=== PATIENT | male | born 1935 | race Caucasian/White ===

== ENCOUNTER 2016-08-10 11:28 | Inpatient (IN) | payer OTHER ==
[~2016-08-10] VITALS: Ht 172.7 cm; Wt 98.4 kg
[2016-08-10 12:41] VITALS: BP 154/73; PULSE 70; TEMP 36.8; O2SAT 98; Ht 172.7 cm; Wt 98.4 kg
[2016-08-10 13:31] LABS: HEMATOCRIT 37.7 % (42-52); MEAN CELL VOLUME 75.2 fL (80-100); MEAN CORPUSCULAR HEMOGLOBIN 24.2 pg (25-34); MEAN CORPUSCULAR HGB CONC 32.1 g/dl (32-36); MEAN PLATELET VOLUME 11.2 fL (7.4-10.4); PLATELET COUNT 191 K/uL (130-400); RED BLOOD COUNT 5.01 M/uL (4.7-6.1); WHITE BLOOD COUNT 7.33 K/uL (4.8-10.8)
[2016-08-10 13:58] LABS: ALT/SGPT 30 U/L (12-78); BLOOD UREA NITROGEN 16 mg/dl (7-18); BUN/CREATININE RATIO 16.8 (10-20); CARBON DIOXIDE 27 mmol/L (21-32); CHLORIDE 105 mmol/L (98-107); CREATININE 0.94 mg/dl (0.60-1.40); GLUCOSE 107 mg/dl (70-99); POTASSIUM 3.6 mmol/L (3.5-5.1); SODIUM 142 mmol/L (136-145)
[2016-08-10 14:03] LABS: CALCIUM 8.9 mg/dl (8.5-10.1)
[2016-08-10 14:05] LABS: ALB/GLOB RATIO 1.1 (0.9-2); ALKALINE PHOSPHATASE 37 U/L (45-117); AST/SGOT 14 U/L (15-37)
[2016-08-10] MEDS ORDERED: LOSA1TAB PO (14:05)
[2016-08-10] MEDS ORDERED: TAMS0.4C38 PO (14:14)
[2016-08-10] MEDS ORDERED: POLY335019 PO (14:14)
[2016-08-10] MEDS ORDERED: HYDR12.56 PO (14:14)
[2016-08-10] MEDS ORDERED: CYCL10TA6 PO (14:14)
[2016-08-10] MEDS ORDERED: FINA5TAB4 PO (14:14)
[2016-08-10] MEDS ORDERED: ASPEC81 PO (14:14)
[2016-08-10] MEDS ORDERED: MULT-506 PO (14:14)
[2016-08-10] MEDS ORDERED: SYMIN160 INH (14:14)
[2016-08-10] MEDS ORDERED: OMEP40CA41 PO (14:14)
[2016-08-10 14:19] LABS: PROTHROMBIN TIME (PATIENT) 10.9 SECONDS (9.0-12.0)
[2016-08-10] MEDS ORDERED: LOSARTAN POTASSIUM 25 MG TAB PO ONE (15:00)
--- NOTE | 2016-08-10 15:32 | Pre-Operative Consultation ---
History General Date of Service: August 10, 2016. HPI HPI: 81 y/o male seen in [facility] ER early this morning for lower abdominal, epigastric pain that began last night around 10:00. Had hamburger around 3:00. No nausea or vomiting. No similar symptoms in the past. Remote history of umbilical hernia repair. Bowels have been regular, sometimes takes a laxative. CT at [place] shows 7mm gallstones, no comment on inflammatory findings however, and bilateral fat containing inguinal hernias. He feels bloated across lower abdomen, no groin bulging or pain. He was eating regular lunch when I saw him. Medical & Surgical History Past Medical History: congestive heart failure, coronary artery disease Past Surgical History: colonoscopy, EGD, hernia repair (umbilical), total knee replacement (bilat), other (cysto) Social History Hx Tobacco Use In Past Year?: No Smoking Status: Former Smoker Allergies Allergies: Coded Allergies: No Known Allergies (Verified , 05/11/02) Medications Current Inpatient Medications Current Inpatient Medications Medications (Trade) Dose Ordered Sig/Shilpa Route Start Time Stop Time Status Last Admin Dose Admin Enoxaparin Sodium (Lovenox Inj) 40 mg Q24H SQ 08/10/16 21:00 09/09/16 20:59 Aspirin (Ecotrin Tab) 81 mg DAILY PO 08/11/16 09:00 09/10/16 08:59 Budesonide/ Formoterol Fumarate (Symbicort 160/ 4.5 Inh) 2 puffs BID INH 08/10/16 21:00 09/09/16 20:59 Finasteride (Proscar Tab) 5 mg DAILY PO 08/11/16 09:00 09/10/16 08:59 Losartan Potassium (coZAAR TAB) 25 mg DAILY PO 08/11/16 09:00 09/10/16 08:59 Multivitamins (Multivitamin Tab) 1 tab DAILY PO 08/11/16 09:00 09/10/16 08:59 Tamsulosin HCl (Flomax Cap) 0.4 mg DAILY PO 08/11/16 09:00 09/10/16 08:59 Pantoprazole Sodium (Protonix Tab) 40 mg QAM PO 08/11/16 09:00 09/10/16 08:59 Polyethylene (Miralax Powder Packet) 17 gm DAILY PRN PO 08/10/16 14:30 09/09/16 14:29 Losartan Potassium (coZAAR TAB) 25 mg NOW ONCE PO 08/10/16 15:00 08/10/16 15:01 Review of Systems Review of Systems Constitutional: denies chills, denies fever Gastrointestinal: abdominal pain, constipation, denies diarrhea, denies nausea , denies vomiting Physical Exam Physical Exam General Appearance: + WD/WN, No distress Ears, Nose, Throat: + normal ENT inspection Abdomen: + distension (minimal), No guarding, No hernia (no recurrent umbilical , no inguinal appreciated), No organomegaly, No tenderness Diagnostics Labs Labs Results Past 24 Hours Test 08/10/16 12:48 08/10/16 13:10 Range/Units Creatine Kinase MB Ratio 0-3.0 White Blood Count 7.33 4.8-10.8 K/uL Red Blood Count 5.01 4.7-6.1 M/uL Hemoglobin 12.1 14.0-18.0 g/dL Hematocrit 37.7 42-52 % Mean Corpuscular Volume 75.2 80-100 fL Mean Corpuscular Hemoglobin 24.2 25-34 pg Mean Corpuscular Hemoglobin Concent 32.1 32-36 g/dl RDW Standard Deviation 43.3 36.4-46.3 fL RDW Coefficient of Variation 15.8 11.5-14.5 % Platelet Count 191 130-400 K/uL Mean Platelet Volume 11.2 7.4-10.4 fL Prothrombin Time 10.9 9.0-12.0 SECONDS Prothromb Time International Ratio 1.0 0.9-1.1 Sodium Level 142 136-145 mmol/L Potassium Level 3.6 3.5-5.1 mmol/L Chloride Level 105 98-107 mmol/L Carbon Dioxide Level 27 21-32 mmol/L Anion Gap 10.0 3-11 mmol/L Blood Urea Nitrogen 16 7-18 mg/dl Creatinine 0.94 0.60-1.40 mg/dl Est Creatinine Clear Calc Drug Dose 67.3 ml/min Estimated GFR () 86.6 Estimated GFR (Non- 74.7 BUN/Creatinine Ratio 16.8 10-20 Random Glucose 107 70-99 mg/dl Calcium Level 8.9 8.5-10.1 mg/dl Total Bilirubin 0.8 0.2-1 mg/dl Aspartate Amino Transf (AST/SGOT) 14 15-37 U/L Alanine Aminotransferase (ALT/SGPT) 30 12-78 U/L Alkaline Phosphatase 37 45-117 U/L Creatine Kinase MB 1.5 0.5-3.6 ng/ml Troponin I 0.023 0-0.045 ng/ml Pro-B-Type Natriuretic Peptide 1673 0-1800 pg/ml Total Protein 7.4 6.4-8.2 gm/dl Albumin 3.8 3.4-5.0 gm/dl Globulin 3.6 2.5-4.0 gm/dl Albumin/Globulin Ratio 1.1 0.9-2 Lipase 55 73-393 U/L Impression Assessment and Plan Assessment and Plan abdominal pain, ? biliary colic cholelithiasis on CT, no studies suggest acute cholecystitis but will check U /S and repeat AM labs bilateral fat containing inguinal hernias, asymptomatic
[2016-08-10] MEDS: POLYETHYLENE (MIRALAX) 17 GM PACK PO PRN (15:35)
[2016-08-10 15:42] VITALS: BP 149/73; PULSE 73; TEMP 37; O2SAT 93
--- NOTE | 2016-08-10 17:53 | History and Physical ---
History & Physical Date & Time of Service: August 10, 2016 at 17:34 Chief Complaint: Abdominal Pain Primary Care Physician: Maricano Mcintosh M.D. History of Present Illness 81 year old male who presented to [place] ED with abdominal pain. Patient reports the pain began around midnight last night. He reports it was located in the lower middle abdomen and radiated out to the sides. He says it was constant and severe. He describes it as a cramping. He reports mild associated nausea with a couple episodes of a small vomiting. He denies diarrhea, fever, and chills. He notes yesterday while cleaning up some garbage he has exertional shortness of breath which is something new for him. He denies chest pain. He reports with rest his shortness of breath improved. He has some swelling to the BLLE today. He notes his legs swell at times and this is no worse than normal. Patient is currently without complaint. Reports the abdominal pain has completely resolved. He denies lightheadedness, dizziness, diaphoresis, or syncope. No urinary symptoms. At [place] [facility] ED, patient had a CT abd/pelvis that showed multiple small gallstones, nodular prostate gland, BL pleural effusions, hepatic hemangiomas, and BL inguinal hernias. CXR showed mild CHF. Patient was given Lasix 80mg IV. At the time of my exam, patient is sitting up in the chair, no acute distress. Past Medical/Surgical History Medical Problems: (1) Asthma, mild persistent Status: Chronic (2) GERD (gastroesophageal reflux disease) Status: Chronic (3) HTN (hypertension) Status: Chronic (4) Osteoarthritis Status: Chronic Surgical Problems: (1) H/O umbilical hernia repair Status: Chronic (2) History of tonsillectomy Status: Chronic (3) History of total knee replacement Status: Chronic Family History non contributory due to patient's advanced age Social History Smoking Status: Never Smoker Alcohol Use: occasionally Marital Status: Housing status: lives with family Immunizations History of Influenza Vaccine: Yes Influenza Vaccine Date: Dec 24, 2015 History of Tetanus Vaccine?: Yes Tetanus Immunization Date: Jun 09, 2013 History of Pneumococcal: Yes Pneumococcal Date: Mar 21, 2014 Multi-Drug Resistant Organisms History of MDRO: No Allergies Coded Allergies: No Known Allergies (Verified , 05/11/02) Home Medications Scheduled Aspirin (Aspirin EC Low Dose), 81 MG PO DAILY Budesonide/Formoterol Fumarate (Symbicort 160/4.5 Inhaler), 2 PUFFS INH BID Finasteride (Proscar), 1 TAB PO DAILY Hydrochlorothiazide (Hctz), 1 CAP PO DAILY Losartan Potassium (Cozaar), 1 TAB PO DAILY Multivitamin (Multivitamin), 1 TAB PO DAILY Omeprazole (Prilosec), 40 MG PO DAILY Tamsulosin Hcl (Flomax), 0.4 MG PO DAILY Scheduled PRN Cyclobenzaprine Hcl (Flexeril), 1 TAB PO BID PRN for Muscle Spasms Polyethylene Glycol 3350 (Miralax), 17 GM PO DAILY PRN for Constipation Review of Systems ROS per HPI, all other systems reviewed and negative Physical Exam Vital Signs Date Time Temp Pulse Resp B/P Pulse Ox O2 Delivery O2 Flow Rate FiO2 08/10/16 16:00 Room Air 08/10/16 15:42 37.0 73 16 149/73 93 Room Air 08/10/16 12:41 36.8 70 18 154/73 98 Room Air General Appearance: no apparent distress Head: normocephalic Eyes: normal inspection ENT: hearing grossly normal Neck: supple, no JVD Respiratory/Chest: lungs clear, normal breath sounds, no respiratory distress Cardiovascular: regular rate, rhythm, normal peripheral pulses, + pertinent finding (trace edema BLLE) Abdomen/GI: normal bowel sounds, non tender, soft Extremities/Musculoskelatal: normal inspection, no calf tenderness Neurologic/Psych: no motor/sensory deficits, alert, normal mood/affect, oriented x 3 Skin: normal color, warm/dry Diagnostics Laboratory Results Results Past 24 Hours Test 08/10/16 12:48 08/10/16 13:10 Range/Units Creatine Kinase MB Ratio 0-3.0 White Blood Count 7.33 4.8-10.8 K/uL Red Blood Count 5.01 4.7-6.1 M/uL Hemoglobin 12.1 14.0-18.0 g/dL Hematocrit 37.7 42-52 % Mean Corpuscular Volume 75.2 80-100 fL Mean Corpuscular Hemoglobin 24.2 25-34 pg Mean Corpuscular Hemoglobin Concent 32.1 32-36 g/dl RDW Standard Deviation 43.3 36.4-46.3 fL RDW Coefficient of Variation 15.8 11.5-14.5 % Platelet Count 191 130-400 K/uL Mean Platelet Volume 11.2 7.4-10.4 fL Prothrombin Time 10.9 9.0-12.0 SECONDS Prothromb Time International Ratio 1.0 0.9-1.1 Sodium Level 142 136-145 mmol/L Potassium Level 3.6 3.5-5.1 mmol/L Chloride Level 105 98-107 mmol/L Carbon Dioxide Level 27 21-32 mmol/L Anion Gap 10.0 3-11 mmol/L Blood Urea Nitrogen 16 7-18 mg/dl Creatinine 0.94 0.60-1.40 mg/dl Est Creatinine Clear Calc Drug Dose 67.3 ml/min Estimated GFR () 86.6 Estimated GFR (Non- 74.7 BUN/Creatinine Ratio 16.8 10-20 Random Glucose 107 70-99 mg/dl Calcium Level 8.9 8.5-10.1 mg/dl Total Bilirubin 0.8 0.2-1 mg/dl Aspartate Amino Transf (AST/SGOT) 14 15-37 U/L Alanine Aminotransferase (ALT/SGPT) 30 12-78 U/L Alkaline Phosphatase 37 45-117 U/L Creatine Kinase MB 1.5 0.5-3.6 ng/ml Troponin I 0.023 0-0.045 ng/ml Pro-B-Type Natriuretic Peptide 1673 0-1800 pg/ml Total Protein 7.4 6.4-8.2 gm/dl Albumin 3.8 3.4-5.0 gm/dl Globulin 3.6 2.5-4.0 gm/dl Albumin/Globulin Ratio 1.1 0.9-2 Lipase 55 73-393 U/L Impression Assessment and Plan NEW ONSET CHF, MILD - admit to tele - patient presenting from [place] [facility] ED with reports of abdominal pain and exertional shortness of breath yesterday; on imaging found to have mild CHF - s/p Lasix 80mg IV at [facility], currently saturating well - stress echo 2012 - negative for ischemia, EF 60-64%, mild aortic valve regurgitation - EKG does not show any acute ST changes, initial troponin negative - continue to cycle cardiac enzymes, check resting echo - will hold on further diuresis at this point as reassess need in AM - case discussed with Dr. Rutherford ABDOMINAL PAIN - CT abd/pelvis from [facility] without acute findings - multiple small gallstones, nodular prostate gland, renal cortical thickening, hepatic hemangioma, BL inguinal hernias - patient currently pain free, afebrile, no leukocytosis - ? if pain is from inguinal hernias; doubt from gallstones since pain is located in the lower abdomen - general surgery consult, input appreciated HEPATIC HEMANGIOMA, NODULAR PROSTATE - outpatient follow up HTN - BP mildly elevated however did not take meds today - continue Losartan, will hold HCTZ due to Lasix given today ASTHMA - no signs of acute exacerbation, continue home inhalers BPH - continue home meds DVT PROPHYLAXIS - SQ Lovenox DISPO - In my clinical judgment this beneficiary meets acute admission criteria, established by [facility], that includes being hospitalized through two midnights. I have seen and evaluated the patient and discussed the case with the provider above. I agree with the assessment and plan as stated. He is clinically improved with clear lungs to auscultation and is feeling well. He denies any abdominal pain at this time and is free of fevers, chills, elevated WBC count so doubt cholecysitis. Pain was improved at ER with PPI and antiemetics only. Likely dc in am. DO Que Level of Care Telemetry Advanced Directives Existing Living Will: No Existing Power of Broadcast Producer: Yes Resuscitation Status FULL RESUSCITATION VTE Prophylaxis VTE Risk Assessment Done? Y/N: Yes Risk Level: Moderate Given or contraindicated: Enoxaparin (Lovenox)SQ
--- NOTE | 2016-08-10 18:48 | CARDIOLOGY CONSULTATION ---
DATE OF CONSULTATION: 08/10/2016 CONSULTATION REQUESTED BY: KASH García. REASON FOR CONSULTATION: Questionable heart failure. HISTORY OF PRESENT ILLNESS: Mr. Peck is a very pleasant 81-year-old gentleman who presented to [facility] Emergency Department this a.m. with a complaint of mid epigastric pain. He was then transferred to [facility] for further evaluation and care. The patient states he has been in his normal state of health lately, except for the last few days feeling his abdomen being a little bloated and noticing that he would bend over to pick something up off the ground that would make him a little short of breath. Other than that, he denied any chest pain, shortness of breath with exertion, palpitations, lightheadedness, dizziness, or syncope. He has not changed his diet at all recently nor has he had any other significant changes then this a.m., he woke up with significant abdominal pain, it is in the midepigastrium and stayed there, did not radiate to his chest. He went to the Emergency Department, a CAT scan of his chest and abdomen showed right greater than left pleural effusions and he was diagnosed with heart failure. He was reportedly given 80 mg of IV Lasix. He did urinate significantly and currently has no shortness of breath at rest. He states that his abdominal pain is relatively well controlled. PAST SURGICAL HISTORY: 1. Umbilical hernia repair. 2. Tonsillectomy. 3. Total knee replacement. MEDICAL ILLNESSES: 1. Asthma. 2. GERD. 3. Hypertension. 4. Osteoarthritis. FAMILY HISTORY: Noncontributory. SOCIAL HISTORY: Denies any alcohol, tobacco or recreational drug use. He is and lives at home with his . REVIEW OF SYSTEMS: As per HPI, all other review of systems reviewed and negative at this time. ALLERGIES: No known drug allergies. MEDICATIONS AN OUTPATIENT: 1. Aspirin 81 mg daily. 2. Hydrochlorothiazide 25 mg daily. 3. Cozaar 100 mg daily. 4. Prilosec daily. 5. Flomax daily. 6. Proscar daily. 7. Symbicort b.i.d. PHYSICAL EXAMINATION: VITAL SIGNS: Temperature 36.8, pulse 70, respiratory rate 12, blood pressure 154/73. GENERAL: Awake, alert, oriented x3 in no acute distress. HEENT: Normocephalic, atraumatic. Pupils equal, round, and reactive to light and accommodation. Extraocular muscles intact. Anicteric sclerae. Moist mucous membranes. NECK: No JVD, no bruit. CARDIOVASCULAR: Regular. Positive S4. Normal S1 and S2. No S3. No murmurs or rubs. PULMONARY: Clear to auscultation bilaterally with diminished air movement in the bilateral bases. No rales, rhonchi, or wheezing. ABDOMEN: Bowel sounds x4, soft, mid epigastric tenderness. No rebound or guarding. No organomegaly. No bruit. EXTREMITIES: Trace left lower extremity edema. No clubbing or cyanosis. +2 pedal pulses bilaterally. SKIN: Warm and dry. TEST RESULTS: Preliminary review of echocardiogram at the bedside showed normal LV systolic function without regional wall motion abnormality, no significant valvular pathology, possibly mild aortic insufficiency. CT of the chest from [place] [facility] was read as moderate right-sided pleural effusion and small left-sided pleural effusion. IMPRESSION: 1. Abdominal pain. 2. Pleural effusions. 3. Normal ventricular systolic function. RECOMMENDATIONS: It was my pleasure to see Mr. Peck in consultation today. Given the echocardiogram finding of only diastolic dysfunction with normal left ventricular systolic function and the fact the patient has urinated and has no further shortness of breath, no further cardiac testing or intervention is necessary at this time. There may be a diastolic dysfunction component to his pleural effusions, but given his lack of symptoms, I believe p.r.n., Lasix will be the most appropriate treatment, otherwise his abdominal pain is to be worked up further.
[2016-08-10 19:20] VITALS: BP 147/73; PULSE 67; TEMP 37; O2SAT 95
--- NOTE | 2016-08-10 19:43 | DIAGNOSTIC IMAGING REPORT ---
ULTRASOUND RIGHT UPPER QUADRANT ABDOMEN CLINICAL HISTORY: Epigastric abdominal pain. COMPARISON STUDY: Abdominal CT from [facility] performed the same day 08/10/2016. TECHNIQUE: Real-time, grayscale, and color flow sonography of the right upper quadrant of the abdomen was performed. Images are reviewed in the transverse and longitudinal planes. FINDINGS: Liver: The liver is normal in size and echotexture. There is no intrahepatic biliary ductal dilatation. A 2.6 cm well-circumscribed echogenic lesion in the liver is consistent with a hemangioma when correlated with today's abdominal CT scan. The main portal vein is patent. Gallbladder: The gallbladder is distended and filled with echogenic sludge and shadowing stones. The gallbladder wall appears thickened measuring up to 5 mm. No pericholecystic fluid is seen. A sonographic Gonzáles's sign is reportedly absent. The common bile duct measures up to 0.4 cm in diameter. Pancreas: Visualized portions of the pancreatic head and body are normal in appearance. Right kidney: Survey images of the right kidney demonstrate mild cortical atrophy. There is no hydronephrosis. A 2.9 cm right renal cyst is identified. Ascites: None. IMPRESSION: 1. The gallbladder is distended and filled with shadowing stones and sludge. The gallbladder wall appears thickened. A sonographic Gonzáles sign is reportedly absent and there is no pericholecystic fluid. Findings are equivocal for acute versus chronic cholecystitis which is not excluded. Clinical correlation will be essential. Consider correlation with nuclear hepatobiliary scan to assess for patency of the cystic duct. 2. There is no intra or extrahepatic biliary ductal dilatation. 3. A hepatic hemangioma is incidentally noted. Electronically signed by: Ronal Velasco M.D. 08/10/2016 7:41 PM Dictated Date/Time: 08/10/2016 7:37 PM
[2016-08-10] MEDS ORDERED: ENOXAPARIN 40 MG/0.4 ML SYR SQ SCH (21:00)
[2016-08-10] MEDS: BUDESONIDE/FORMOTEROL FUMARATE 160/4.5 60 PUFFS/INHALER INH SCH (21:05)
[2016-08-10 23:37] VITALS: BP 143/69; PULSE 86; TEMP 37.3; O2SAT 95
[2016-08-11] VITALS (11 sets, daily range): BP systolic 116–149; BP diastolic 60–77; PULSE 74–88; TEMP 36.7–37.2; O2SAT 90–99
[2016-08-11 05:45] LABS: BASO % 0.1 %; BASO ABS # 0.01 K/uL (0-0.2); COMPLETE YES; HEMATOCRIT 32.7 % (42-52); IG% 0.1 %; LYMPH % 16.6 %; LYMPH ABS # 1.15 K/uL (1.2-3.4); MEAN CELL VOLUME 75.2 fL (80-100); MEAN CORPUSCULAR HEMOGLOBIN 24.6 pg (25-34); MEAN CORPUSCULAR HGB CONC 32.7 g/dl (32-36); MEAN PLATELET VOLUME 10.2 fL (7.4-10.4); MONO % 14.7 %; NEUT % 67.5 %; PLATELET COUNT 154 K/uL (130-400); RED BLOOD COUNT 4.35 M/uL (4.7-6.1); WHITE BLOOD COUNT 6.93 K/uL (4.8-10.8)
--- NOTE | 2016-08-11 06:01 | Surgery Progress Note ---
Surgery Progress Note Date of Service August 11, 2016. Subjective + flatus, No bowel movement, No nausea, No vomiting pain has subsided u/s- gallbladder- distended, thick wall, sludge filled Objective Vital Signs: Date Time Temp Pulse Resp B/P Pulse Ox O2 Delivery O2 Flow Rate FiO2 08/11/16 04:24 37.1 82 18 145/71 93 Room Air 08/11/16 04:00 Room Air 08/10/16 23:59 Room Air 08/10/16 23:37 37.3 86 16 143/69 95 Room Air 08/10/16 20:00 Room Air 08/10/16 19:20 37.0 67 18 147/73 95 Room Air 08/10/16 16:00 Room Air 08/10/16 15:42 37.0 73 16 149/73 93 Room Air 08/10/16 12:41 36.8 70 18 154/73 98 Room Air General Appearance: no apparent distress Respiratory/Chest: no respiratory distress Abdomen: + distended (less than yesterday) Laboratory Results: Results Past 24 Hours Test 08/10/16 12:48 08/10/16 13:10 08/10/16 18:59 08/11/16 00:45 Range/Units Creatine Kinase MB Ratio 0-3.0 White Blood Count 7.33 4.8-10.8 K/uL Red Blood Count 5.01 4.7-6.1 M/uL Hemoglobin 12.1 14.0-18.0 g/dL Hematocrit 37.7 42-52 % Mean Corpuscular Volume 75.2 80-100 fL Mean Corpuscular Hemoglobin 24.2 25-34 pg Mean Corpuscular Hemoglobin Concent 32.1 32-36 g/dl RDW Standard Deviation 43.3 36.4-46.3 fL RDW Coefficient of Variation 15.8 11.5-14.5 % Platelet Count 191 130-400 K/uL Mean Platelet Volume 11.2 7.4-10.4 fL Prothrombin Time 10.9 9.0-12.0 SECONDS Prothromb Time International Ratio 1.0 0.9-1.1 Sodium Level 142 136-145 mmol/L Potassium Level 3.6 3.5-5.1 mmol/L Chloride Level 105 98-107 mmol/L Carbon Dioxide Level 27 21-32 mmol/L Anion Gap 10.0 3-11 mmol/L Blood Urea Nitrogen 16 7-18 mg/dl Creatinine 0.94 0.60-1.40 mg/dl Est Creatinine Clear Calc Drug Dose 67.3 ml/min Estimated GFR () 86.6 Estimated GFR (Non- 74.7 BUN/Creatinine Ratio 16.8 10-20 Random Glucose 107 70-99 mg/dl Calcium Level 8.9 8.5-10.1 mg/dl Total Bilirubin 0.8 0.2-1 mg/dl Aspartate Amino Transf (AST/SGOT) 14 15-37 U/L Alanine Aminotransferase (ALT/SGPT) 30 12-78 U/L Alkaline Phosphatase 37 45-117 U/L Creatine Kinase MB 1.5 1.5 1.1 0.5-3.6 ng/ml Troponin I 0.023 0.037 0.043 0-0.045 ng/ml Pro-B-Type Natriuretic Peptide 1673 0-1800 pg/ml Total Protein 7.4 6.4-8.2 gm/dl Albumin 3.8 3.4-5.0 gm/dl Globulin 3.6 2.5-4.0 gm/dl Albumin/Globulin Ratio 1.1 0.9-2 Lipase 55 73-393 U/L Test 08/11/16 05:20 Range/Units White Blood Count 6.93 4.8-10.8 K/uL Red Blood Count 4.35 4.7-6.1 M/uL Hemoglobin 10.7 14.0-18.0 g/dL Hematocrit 32.7 42-52 % Mean Corpuscular Volume 75.2 80-100 fL Mean Corpuscular Hemoglobin 24.6 25-34 pg Mean Corpuscular Hemoglobin Concent 32.7 32-36 g/dl Platelet Count 154 130-400 K/uL Mean Platelet Volume 10.2 7.4-10.4 fL Neutrophils (%) (Auto) 67.5 % Lymphocytes (%) (Auto) 16.6 % Monocytes (%) (Auto) 14.7 % Eosinophils (%) (Auto) 1.0 % Basophils (%) (Auto) 0.1 % Neutrophils # (Auto) 4.67 1.4-6.5 K/uL Lymphocytes # (Auto) 1.15 1.2-3.4 K/uL Monocytes # (Auto) 1.02 0.11-0.59 K/uL Eosinophils # (Auto) 0.07 0-0.5 K/uL Basophils # (Auto) 0.01 0-0.2 K/uL RDW Standard Deviation 42.3 36.4-46.3 fL RDW Coefficient of Variation 15.3 11.5-14.5 % Immature Granulocyte % (Auto) 0.1 % Immature Granulocyte # (Auto) 0.01 0.00-0.02 K/uL Assessment & Plan 08/11/16- I think we should proceed with laparoscopic hcristine- he is at risk for developing necrotizing cholecystitis. Will plan for OR today
[2016-08-11 06:12] LABS: BUN/CREATININE RATIO 17.5 (10-20); PHOSPHORUS 3.1 mg/dl (2.5-4.9); POTASSIUM 3.4 mmol/L (3.5-5.1)
[2016-08-11] MEDS: D5W AND 1/2NSS + 40MEQ KCL 1,000 ML IV SCH ×2 (07:03→22:30)
[2016-08-11] MEDS: BUDESONIDE/FORMOTEROL FUMARATE 160/4.5 60 PUFFS/INHALER INH SCH ×2 (07:15→20:48)
[2016-08-11] MEDS: PANTOprazole SOD 40 MG TAB PO SCH (07:16)
[2016-08-11] MEDS: LOSARTAN POTASSIUM 25 MG TAB PO SCH (07:16)
[2016-08-11] MEDS: FINASTERIDE 5 MG TAB PO SCH (07:16)
[2016-08-11] MEDS: MULTIVITAMIN TAB PO SCH (07:16)
[2016-08-11] MEDS: TAMSULOSIN HCL 0.4 MG CAP PO SCH (07:16)
[2016-08-11] MEDS ORDERED: CEFOXITIN IV 2,000 MG in DEXTROSE 5% 50ML 50 ML IV SCH (08:00)
--- NOTE | 2016-08-11 08:44 | DIAGNOSTIC IMAGING REPORT ---
CHEST 2 VIEWS ROUTINE HISTORY: Congestive heart failure. Short of breath. COMPARISON: Chest 08/10/2016 outside hospital. FINDINGS: Interval improvement in the mild interstitial pulmonary edema and small bilateral pleural effusions. Mild cardiomegaly persist. No pneumothorax. IMPRESSION: Improvement in the mild interstitial pulmonary edema and small bilateral pleural effusions. Electronically signed by: Raza Villalpando M.D. 08/11/2016 8:43 AM Dictated Date/Time: 08/11/2016 8:42 AM
--- NOTE | 2016-08-11 08:57 | ECHOCARDIOGRAM REPORT ---
*NOTICE TO RECEIVING REPUBLICAN AGENCY This information is strictly Confidential and protected under [place] law. [place] law prohibits you from making any further disclosure of this information unless further disclosure is expressly permitted by the written consent of the person to whom it pertains or is authorized by law. A general authorization for the release of medical or other information is not sufficient for this purpose. Hospital accepts no responsibility if the information is made available to any other person, INCLUDING THE PATIENT. Interpretation Summary * Name: LUPILLO CHAVEZ Study Date: 08/10/2016 02:05 PM BP: 154/73 mmHg * Patient Location: C.2T\S\E216\S\1 HR: 70 * : 1935 (M/d/yy) Gender: Male Height: 68 in * Age: 81 yrs Ethnicity: [place] Weight: 214 lb * Ordering Physician: Margarita Morales * Referring Physician: Filippo Castillo * Performed By: Ashley Raygoza * * Reason For Study: CHF * BSA: 2.1 m2 * -- Conclusions -- * Small, underfilled LV chamber size with moderate concentric LVH. * Hyperdynamic LV systolic function, EF >70%. * No segmental left ventricular wall motion abnormalities are noted. * Grade II diastolic dysfunction. * Aortic valve sclerosis moderate, without significant aortic valvular stenosis. * Trace aortic regurgitation. * Trace mitral regurgitation. * Mild left atrial enlargement. Procedure Details * A complete two-dimensional transthoracic echocardiogram was performed (2D, M-mode, Doppler and color flow Doppler). Left Ventricle * The left ventricular cavity is small. * There is moderate concentric left ventricular hypertrophy. * Ejection Fraction = >70 %. * Left ventricular systolic function is normal. * No segmental left ventricular wall motion abnormalities are noted. * The left ventricular wall motion is normal. Right Ventricle * The right ventricular cavity size is normal (basal dimension <4.2 cm in right ventricular apical 4-chamber view). * The right ventricular systolic function is normal as assessed by tricuspid annular plane systolic excursion (TAPSE) (normal >1.5 cm). Atria * The left atrium is mildly dilated. * Right atrial size is normal. * No ASD detected; PFO is not assessed. Mitral Valve * There is moderate mitral annular calcification. * There is no mitral valve stenosis. * There is trace mitral regurgitation. Tricuspid Valve * The tricuspid valve is normal in structure and function. Aortic Valve * The aortic valve is trileaflet. * Aortic valve sclerosis moderate, without significant aortic valvular stenosis. * No hemodynamically significant valvular aortic stenosis. * Trace aortic regurgitation. Pulmonic Valve * The pulmonary valve is not well seen, but the Doppler examination is normal without significant regurgitation or stenosis. Great Vessels * The aortic root and proximal ascending aorta are normal sized. Pericardium/Pleural * There is no pericardial effusion. Left Ventricular Diastolic Function * Diastolic dysfunction, Grade II (pseudonormalization pattern). MMode 2D Measurements and Calculations IVSd 1.8 cm IVSs 2.9 cm LVIDd 4.0 cm LVIDs 1.9 cm LVPWd 1.6 cm LVPWs 2.0 cm IVS/LVPW 1.1 FS 52.2 % EDV(Teich) 70.8 ml ESV(Teich) 11.5 ml EF(Teich) 83.8 % EDV(cubed) 64.9 ml ESV(cubed) 7.1 ml EF(cubed) 89.1 % % IVS thick 62.7 % % LVPW thick 25.7 % LV mass(C)d 288.9 grams LV mass(C)dI 137.3 grams/m\S\2 LV mass(C)s 266.7 grams LV mass(C)sI 126.8 grams/m\S\2 CO(Teich) 4.0 l/min CI(Teich) 1.9 l/min/m\S\2 SV(Teich) 59.3 ml SI(Teich) 28.2 ml/m\S\2 CO(cubed) 3.9 l/min CI(cubed) 1.8 l/min/m\S\2 SV(cubed) 57.8 ml SI(cubed) 27.5 ml/m\S\2 ACS 1.1 cm LA dimension 4.4 cm asc Aorta Diam 3.6 cm LVOT diam 2.0 cm LVOT area 3.1 cm\S\2 LVAd ap4 32.8 cm\S\2 LVLd ap4 8.5 cm EDV(MOD-sp4) 103.0 ml LVAs ap4 14.2 cm\S\2 LVLs ap4 6.5 cm ESV(MOD-sp4) 28.6 ml EF(MOD-sp4) 72.2 % LVAd ap2 27.1 cm\S\2 LVLd ap2 8.1 cm EDV(MOD-sp2) 78.5 ml LVAs ap2 12.6 cm\S\2 LVLs ap2 6.6 cm ESV(MOD-sp2) 21.5 ml EF(MOD-sp2) 72.6 % CO(MOD-sp4) 5.0 l/min CI(MOD-sp4) 2.4 l/min/m\S\2 SV(MOD-sp4) 74.4 ml SI(MOD-sp4) 35.4 ml/m\S\2 CO(MOD-sp2) 3.8 l/min CI(MOD-sp2) 1.8 l/min/m\S\2 SV(MOD-sp2) 57.0 ml SI(MOD-sp2) 27.1 ml/m\S\2 Doppler Measurements and Calculations MV E max fernie 111.1 cm/sec MV A max fernie 63.5 cm/sec MV E/A 1.7 MV V2 max 190.0 cm/sec MV max PG 14.4 mmHg MV V2 mean 87.6 cm/sec MV mean PG 4.0 mmHg MV V2 VTI 51.8 cm MV dec time 0.31 sec Ao V2 max 184.6 cm/sec Ao max PG 13.6 mmHg Ao max PG (full) 7.7 mmHg HUMA(V,A) 2.0 cm\S\2 HUMA(V,D) 2.0 cm\S\2 AI max fernie 333.9 cm/sec AI max PG 44.6 mmHg AI dec slope 245.3 cm/sec\S\2 AI P1/2t 398.7 msec LV V1 max PG 6.0 mmHg LV V1 max 122.2 cm/sec PA V2 max 95.6 cm/sec PA max PG 3.7 mmHg PI end-d fernie 134.4 cm/sec TR max fernie 278.3 cm/sec
[2016-08-11] MEDS ORDERED: ASPIRIN 81 MG ECTAB PO SCH (09:00)
[2016-08-11] MEDS: POTASSIUM CHLR 10 MEQ / WTR 10 MEQ in PREMIXED WATER 100 ML IV SCH ×2 (12:00→13:00)
--- NOTE | 2016-08-11 12:03 | Progress Note ---
Internal Med Progress Note Date of Service: August 11, 2016. Provider Documentation: SUBJECTIVE: Patient is doing well. Denies any chest pain, SOB, abd pain, nausea, vomiting, fever, chills. OBJECTIVE: Vital Signs-as noted below Exam: General-AAOX3, no distress Eyes-No icterus Neck-Supple, No JVD Lungs-AEBE, no wheezing, crackles Heart-S1, S2 normal Abdomen-Soft, non tender, non distended Extremities-No edema Neuro-Grossly no focal deficits Lab data as noted below. ASSESSMENT & PLAN: ACUTE CHOLECYSTITIS: Patient was transferred from [place] ER for abdominal pain/exertional SOB, Imaging showed CHF. Was initially treated for CHF, received IV Lasix 80 mg X [address] scan abd/pelvis from [place] - multiple small gallstones, nodular prostate gland, renal cortical thickening, hepatic hemangioma, BL inguinal hernias, GB- Cholecystitis which explains his symptoms -Afebrile, No abdominal pain -IV Cefoxitin q 8 hours; IV Fluids at 50 cc./hour -Cleared for surgery by cardiology- Not in CHF now, most likely symptoms were related to cholecystitis. -For Laparoscopic Cholecystectomy today -Work up- Trop x 3- negative, BNP - normal, Echo- Small, underfilled LV chamber size with moderate concentric LVH, EF- > 70%, No new wall motion abnormalities; Trace AR, MR, Mild LAE, Gd II diastolic dysfunction -Appreciate surgery inputs B/L PLEURAL EFFUSIONS, SMALL: Initially rxed for possible CHF --> given IV Lasix x 1 dose - 80 mg in ER. -Per cardiology, cleared for lap cholecystectomy as likely symptoms were secondary to cholecystitis than cardiac etiology. Echo- diastolic dysfunction component, but no wall motion abn, EF normal -S/P IV Lasix 80 x 1 dose--> PRN lasix -Now on IVF - for surgery today -Appreciate cardiology inputs HEPATIC HEMANGIOMA, NODULAR PROSTATE - outpatient follow up HTN - continue Losartan, holding HCTZ - Monitor ASTHMA - no signs of acute exacerbation, continue home inhalers BPH - continue home meds DVT PROPHYLAXIS - SQ Lovenox DISPO - Continue with tele monitoring - For lap christine today Vital Signs: Date Time Temp Pulse Resp B/P Pulse Ox O2 Delivery O2 Flow Rate FiO2 08/11/16 10:58 37.1 78 18 146/76 96 Room Air 08/11/16 08:00 93 Room Air 08/11/16 07:12 37.2 79 18 149/77 93 Room Air 08/11/16 06:58 37.1 82 18 145/71 93 Room Air 08/11/16 04:24 37.1 82 18 145/71 93 Room Air 08/11/16 04:00 Room Air 08/10/16 23:59 Room Air 08/10/16 23:37 37.3 86 16 143/69 95 Room Air 08/10/16 20:00 Room Air 08/10/16 19:20 37.0 67 18 147/73 95 Room Air 08/10/16 16:00 Room Air 08/10/16 15:42 37.0 73 16 149/73 93 Room Air 08/10/16 12:41 36.8 70 18 154/73 98 Room Air Lab Results: Results Past 24 Hours Test 08/10/16 12:48 08/10/16 13:10 08/10/16 18:59 08/11/16 00:45 Range/Units Creatine Kinase MB Ratio 0-3.0 White Blood Count 7.33 4.8-10.8 K/uL Red Blood Count 5.01 4.7-6.1 M/uL Hemoglobin 12.1 14.0-18.0 g/dL Hematocrit 37.7 42-52 % Mean Corpuscular Volume 75.2 80-100 fL Mean Corpuscular Hemoglobin 24.2 25-34 pg Mean Corpuscular Hemoglobin Concent 32.1 32-36 g/dl RDW Standard Deviation 43.3 36.4-46.3 fL RDW Coefficient of Variation 15.8 11.5-14.5 % Platelet Count 191 130-400 K/uL Mean Platelet Volume 11.2 7.4-10.4 fL Prothrombin Time 10.9 9.0-12.0 SECONDS Prothromb Time International Ratio 1.0 0.9-1.1 Sodium Level 142 136-145 mmol/L Potassium Level 3.6 3.5-5.1 mmol/L Chloride Level 105 98-107 mmol/L Carbon Dioxide Level 27 21-32 mmol/L Anion Gap 10.0 3-11 mmol/L Blood Urea Nitrogen 16 7-18 mg/dl Creatinine 0.94 0.60-1.40 mg/dl Est Creatinine Clear Calc Drug Dose 67.3 ml/min Estimated GFR () 86.6 Estimated GFR (Non- 74.7 BUN/Creatinine Ratio 16.8 10-20 Random Glucose 107 70-99 mg/dl Calcium Level 8.9 8.5-10.1 mg/dl Total Bilirubin 0.8 0.2-1 mg/dl Aspartate Amino Transf (AST/SGOT) 14 15-37 U/L Alanine Aminotransferase (ALT/SGPT) 30 12-78 U/L Alkaline Phosphatase 37 45-117 U/L Creatine Kinase MB 1.5 1.5 1.1 0.5-3.6 ng/ml Troponin I 0.023 0.037 0.043 0-0.045 ng/ml Pro-B-Type Natriuretic Peptide 1673 0-1800 pg/ml Total Protein 7.4 6.4-8.2 gm/dl Albumin 3.8 3.4-5.0 gm/dl Globulin 3.6 2.5-4.0 gm/dl Albumin/Globulin Ratio 1.1 0.9-2 Lipase 55 73-393 U/L Test 08/11/16 05:20 Range/Units White Blood Count 6.93 4.8-10.8 K/uL Red Blood Count 4.35 4.7-6.1 M/uL Hemoglobin 10.7 14.0-18.0 g/dL Hematocrit 32.7 42-52 % Mean Corpuscular Volume 75.2 80-100 fL Mean Corpuscular Hemoglobin 24.6 25-34 pg Mean Corpuscular Hemoglobin Concent 32.7 32-36 g/dl Platelet Count 154 130-400 K/uL Mean Platelet Volume 10.2 7.4-10.4 fL Neutrophils (%) (Auto) 67.5 % Lymphocytes (%) (Auto) 16.6 % Monocytes (%) (Auto) 14.7 % Eosinophils (%) (Auto) 1.0 % Basophils (%) (Auto) 0.1 % Neutrophils # (Auto) 4.67 1.4-6.5 K/uL Lymphocytes # (Auto) 1.15 1.2-3.4 K/uL Monocytes # (Auto) 1.02 0.11-0.59 K/uL Eosinophils # (Auto) 0.07 0-0.5 K/uL Basophils # (Auto) 0.01 0-0.2 K/uL RDW Standard Deviation 42.3 36.4-46.3 fL RDW Coefficient of Variation 15.3 11.5-14.5 % Immature Granulocyte % (Auto) 0.1 % Immature Granulocyte # (Auto) 0.01 0.00-0.02 K/uL Sodium Level 143 136-145 mmol/L Potassium Level 3.4 3.5-5.1 mmol/L Chloride Level 108 98-107 mmol/L Carbon Dioxide Level 32 21-32 mmol/L Anion Gap 3.0 3-11 mmol/L Blood Urea Nitrogen 18 7-18 mg/dl Creatinine 1.00 0.60-1.40 mg/dl Est Creatinine Clear Calc Drug Dose 63.3 ml/min Estimated GFR () 80.3 Estimated GFR (Non- 69.3 BUN/Creatinine Ratio 17.5 10-20 Random Glucose 109 70-99 mg/dl Calcium Level 8.0 8.5-10.1 mg/dl Phosphorus Level 3.1 2.5-4.9 mg/dl Magnesium Level 2.0 1.8-2.4 mg/dl Total Bilirubin 0.8 0.2-1 mg/dl Aspartate Amino Transf (AST/SGOT) 15 15-37 U/L Alanine Aminotransferase (ALT/SGPT) 25 12-78 U/L Alkaline Phosphatase 35 45-117 U/L Total Protein 6.5 6.4-8.2 gm/dl Albumin 3.3 3.4-5.0 gm/dl Globulin 3.2 2.5-4.0 gm/dl Albumin/Globulin Ratio 1.0 0.9-2
[2016-08-11] MEDS ORDERED: PROPOFOL IV EMULSION 10 MG/ML 20 ML VIAL IV ONE (12:34)
[2016-08-11] MEDS ORDERED: SUCCINYLCHOLINE CHLORIDE 20 MG/ML 10 ML VIAL IV ONE (12:34)
[2016-08-11] MEDS ORDERED: ROCURONIUM BROMIDE 10 MG/ML 5 ML VIAL ONE (12:34)
[2016-08-11] MEDS ORDERED: MIDAZOLAM HCL 1 MG/ML 2ML VIAL ONE (12:34)
[2016-08-11] MEDS ORDERED: LIDOCAINE HCL 2% 2 ML VIAL (20MG/ML) ONE ×2 (12:34→13:48)
[2016-08-11] MEDS ORDERED: FENTANYL CITRATE INJ 50 MCG/1 ML 2 ML VIAL ONE ×2 (12:34→13:47)
[2016-08-11] MEDS ORDERED: BUPIVACAINE 0.5 % 5 MG/1 ML MPF 30ML VIAL ONE (13:04)
[2016-08-11] MEDS ORDERED: CONRAY 60% 50 ML VIAL ONE (13:04)
--- NOTE | 2016-08-11 13:09 | Cardiology Follow-Up ---
Subjective Subjective Date of Service: August 11, 2016. Pt evaluation today including: conversation w/ patient, physical exam, chart review, lab review, review of studies, review of inpatient medication list Additional Details: Pt seen and examined, states that he feels ok, still with abdominal discomfort. Denies cp, sob, palpitations, lightheadedness or dizziness. Tele reviewed: sinus rhythm without arrhythmia. Review of Systems Respiratory: No cough, No dyspnea at rest, No dyspnea on exertion, No hemoptysis, No problem reported, No see HPI, No shortness of breath, No sputum, No wheezing Cardiac: No PND, No chest pain, No claudication, No edema, No orthopnea, No palpitations, No problem reported, No see HPI Abdomen: + nausea, + pain Objective Vital Signs Last Vital Signs Documentation Date Time Temp Pulse Resp B/P Pulse Ox O2 Delivery O2 Flow Rate FiO2 08/11/16 12:03 93 Room Air 08/11/16 10:58 37.1 78 18 146/76 Physical Exam: General Appearance: WD/WN, no apparent distress Eyes: bilateral eyes EOMI, bilateral eyes PERRL, bilateral eyes normal inspection ENT: normal ENT inspection, hearing grossly normal, pharynx normal Neck: supple, no adenopathy, thyroid normal, no JVD, no carotid bruits, trachea midline Respiratory/Chest: chest non-tender, lungs clear, normal breath sounds, no respiratory distress, no accessory muscle use Cardiovascular: regular rate, rhythm, no edema, no JVD, + systolic murmur (3/6 mid to late mariela, 2nd ics, rsb), + gallop/S4 Abdomen: normal bowel sounds, soft, no pulsatile mass, + tenderness Extremities: normal inspection, no pedal edema, no calf tenderness Neurologic/Psychiatric: direct mail clerk II-XII nml as tested, no motor/sensory deficits, alert, normal mood/affect, oriented x 3 Skin: normal color, warm/dry, no rash Lymphatic: no adenopathy Assessment and Plan 1. abdominal pain with acute christine for cholecystectomy 2. pleural effusions possible diastolic dysfunction component normal LV systolic function would recommend prn lasix for sob 3. preop risk assessment pt counseled that I would place him as a low risk for adverse perioperative cardiovascular event risk approx <1% and that no further cardiac testing or intervention would further lower that risk pt states that he understands, he is accepting of the risk and wishes to proceed no benefit from delaying surgery from cardiac standpoint.
[2016-08-11] MEDS ORDERED: CEFAZOLIN SOD 1 GM VIAL ONE (13:47)
[2016-08-11] MEDS ORDERED: EpHEDrine SULFATE 50MG/5ML SYR ONE (13:47)
[2016-08-11] MEDS ORDERED: LARYING-O-JET KIT (LTA) EXT ONE ×2 (13:48)
[2016-08-11] MEDS ORDERED: CISATRACURIUM BESYLATE IV SOLN 2 MG/ML 10 ML VIAL ONE (13:48)
[2016-08-11] MEDS ORDERED: NEOSTIGMINE METHYLSULFATE 5 MG/5 ML SYR ONE (13:49)
[2016-08-11] MEDS ORDERED: GLYCOPYRROLATE INJ 0.2 MG/ML VIAL ONE (13:49)
[2016-08-11] MEDS ORDERED: ONDANSETRON INJ 2 MG/ML 2 ML VIAL ONE (13:49)
[2016-08-11] MEDS ORDERED: DEXAMETHASONE SOD INJ 4 MG/ML VIAL ONE (13:49)
--- NOTE | 2016-08-11 14:20 | [facility] Post Operative Brief Note ---
Immediate Operative Summary Operative Date August 11, 2016. Pre-Operative Diagnosis acute cholecystitis Post-Operative Diagnosis Acute cholecystitis, necrotizing cholecystitis, bilious ascites Procedure(s) Performed same Surgeon Dr Agrawal Watchstander Surgeon(s) Jesús Simeon PA-C Estimated Blood Loss 20 ml Findings necrotic patches in wall of gb, bilious ascites Specimens A Gallbladder Drains #15 Rd LENY drain to subhepatic space Anesthesia gen Complication(s) None Disposition Recovery Room / PACU
[2016-08-11] MEDS ORDERED: ONDANSETRON INJ 2 MG/ML 2 ML VIAL IV PRN (14:30)
[2016-08-11] MEDS ORDERED: NALOXONE HCL 0.4 MG/1 ML VIAL/CARP IV PRN (14:30)
[2016-08-11] MEDS ORDERED: LABETALOL HCL IV 5 MG/ML 20ML IV PRN (14:30)
[2016-08-11] MEDS ORDERED: FLUMAZENIL 0.1 MG/1 ML 10 ML VIAL IV PRN (14:30)
[2016-08-11] MEDS ORDERED: EpHEDrine SULFATE INJ 50 MG/ML AMP IV PRN (14:30)
[2016-08-11] MEDS ORDERED: ATROPINE SULFATE 0.1 MG/ML 5ML SYR IV PRN (14:30)
[2016-08-11] MEDS ORDERED: PROMETHAZINE HCL INJ 12.5 MG in SODIUM CHLORIDE 0.9% 50ML 50 ML IV PRN (14:30)
[2016-08-11] MEDS ORDERED: FENTANYL CITRATE INJ 50 MCG/1 ML 2 ML VIAL IV PRN (14:30)
--- NOTE | 2016-08-11 14:40 | OPERATIVE REPORT ---
DATE OF OPERATION: 08/11/2016 NAME OF OPERATION: Laparoscopic cholecystectomy. PREOPERATIVE DIAGNOSIS: Acute cholecystitis. POSTOPERATIVE DIAGNOSES: Same with necrotizing cholecystitis and bilious ascites. STAFF SURGEON: Dr. Agrawal. PLANNING AIDE: Jesús Shannon PA-C and Magui Madsen PA-C. ANESTHESIA: General. PROCEDURE: The patient was brought in the operating room and placed on the operating table in supine position. His abdomen was prepped and draped in the usual fashion. Mae catheter, pneumatic stockings and orogastric tube were placed. 0.5% plain Marcaine was used to anesthetize the skin and subcutaneous tissue above the umbilicus. Incision made carrying dissection down to the fascia, placing a Veress needle producing pneumoperitoneum. Under visualization after an 11 mm port was placed three 5 mm ports were placed, 1 cephalad and 2 laterally. The patient had a very large omentum up over the liver, this was taken down and the gallbladder was observed, it was severely distended and edematous with patchy necrosis. I attempted to aspirate the bile was very thick. I actually made a small opening in the gallbladder to aspirate the bile. We were able to grasp the gallbladder and retract it. There was severe edema. There were some chronic dense adhesions which were taken down sharply of the omentum to the gallbladder. The patient did have a small amount of bilious ascites. At this point, dissection was carried out at the oliverio hepatis, identifying the cystic artery and cystic duct. These were clipped and transected and the gallbladder dissected away from the liver bed. There was severe edema in the posterior wall. Gallbladder was placed into an Endobag and then after appropriate irrigation and hemostasis, a 15 round Bruno-Combs drain placed through the lateral 5 mm port site into the subhepatic space, secured to the skin using 3-0 nylon suture. At this point, the gallbladder was brought out through the umbilicus. I did have to enlarge the fascial defect secondary to the size of the gallbladder. All ports were removed, the fascia at the umbilicus closed using 0 PDS suture, subcutaneous tissue reapproximated using 2-0 plain catgut suture then the skin reapproximated at all incisions using 4-0 nylon suture. The patient was transferred to recovery room in stable condition. Mae catheter was left in place. I attest to the content of the Intraoperative Record and any orders documented therein. Any exceptio ns are noted below.
--- NOTE | 2016-08-11 14:56 | Anesthesiology Progress Note ---
Anesthesia Post Op Note Date & Time August 11, 2016 at 14:56 Vital Signs Pain Intensity: 0 Vital Signs Past 12 Hours Date Time Temp Pulse Resp B/P Pulse Ox O2 Delivery O2 Flow Rate FiO2 08/11/16 14:46 88 22 99 Diffusion Mask 10.0 08/11/16 14:45 95 20 161/79 99 Mask 10 08/11/16 14:35 95 20 163/86 98 Mask 10 08/11/16 14:29 37.0 93 20 153/72 93 Room Air 08/11/16 12:03 93 Room Air 08/11/16 10:58 37.1 78 18 146/76 96 Room Air 08/11/16 08:00 93 Room Air 08/11/16 07:12 37.2 79 18 149/77 93 Room Air 08/11/16 06:58 37.1 82 18 145/71 93 Room Air 08/11/16 04:24 37.1 82 18 145/71 93 Room Air 08/11/16 04:00 Room Air Notes Mental Status: alert / awake / arousable, participated in evaluation Pt Amnestic to Procedure: Yes Nausea / Vomiting: adequately controlled Pain: adequately controlled Airway Patency, RR, SpO2: stable & adequate BP & HR: stable & adequate Hydration State: stable & adequate Anesthetic Complications: no major complications apparent
[2016-08-11] MEDS ORDERED: ALBUTEROL 0.083% NEBU SOLN 3 ML VIAL INH ONE (15:15)
[2016-08-11] MEDS ORDERED: PIPERACILL/TAZOBAC CONSULT ACTIVE PRN (15:45)
[2016-08-11] MEDS: PIPERACILL/TAZOBAC IV 3.375 GM in DEXTROSE 5% 100ML 100 ML IV SCH ×2 (16:27→23:33)
[2016-08-12] VITALS (7 sets, daily range): BP systolic 128–154; BP diastolic 66–87; PULSE 70–81; TEMP 36.4–37; O2SAT 93–96
[2016-08-12 05:27] LABS: HEMATOCRIT 31.9 % (42-52); MEAN CELL VOLUME 75.2 fL (80-100); MEAN CORPUSCULAR HEMOGLOBIN 24.3 pg (25-34); MEAN CORPUSCULAR HGB CONC 32.3 g/dl (32-36); MEAN PLATELET VOLUME 10.3 fL (7.4-10.4); PLATELET COUNT 157 K/uL (130-400); RED BLOOD COUNT 4.24 M/uL (4.7-6.1); WHITE BLOOD COUNT 8.18 K/uL (4.8-10.8)
[2016-08-12 05:57] LABS: BUN/CREATININE RATIO 14.1 (10-20); CALCIUM 7.7 mg/dl (8.5-10.1); CREATININE 0.94 mg/dl (0.60-1.40); MAGNESIUM 2.1 mg/dl (1.8-2.4); POTASSIUM 3.6 mmol/L (3.5-5.1)
[2016-08-12 06:02] LABS: ALB/GLOB RATIO 0.9 (0.9-2); PHOSPHORUS 3.1 mg/dl (2.5-4.9)
--- NOTE | 2016-08-12 06:49 | Surgery Progress Note ---
Surgery Progress Note Date of Service August 12, 2016. Subjective No bowel movement, No nausea, No vomiting some pain, awake, alert Objective Vital Signs: Date Time Temp Pulse Resp B/P Pulse Ox O2 Delivery O2 Flow Rate FiO2 08/12/16 04:00 Room Air 08/12/16 03:34 36.4 73 19 128/68 94 Room Air 08/11/16 23:59 Room Air 08/11/16 23:22 36.7 78 22 130/69 95 Room Air 08/11/16 20:00 93 Room Air 08/11/16 19:47 36.7 74 16 116/60 90 Room Air 08/11/16 16:00 93 Room Air 08/11/16 15:05 36.6 81 20 129/61 96 Nasal Cannula 2 08/11/16 14:55 86 20 139/62 96 Nasal Cannula 2 08/11/16 14:46 88 22 99 Diffusion Mask 10.0 08/11/16 14:45 95 20 161/79 99 Mask 10 08/11/16 14:35 95 20 163/86 98 Mask 10 08/11/16 14:29 37.0 93 20 153/72 93 Room Air 08/11/16 12:03 93 Room Air 08/11/16 10:58 37.1 78 18 146/76 96 Room Air 08/11/16 08:00 93 Room Air 08/11/16 07:12 37.2 79 18 149/77 93 Room Air 08/11/16 06:58 37.1 82 18 145/71 93 Room Air General Appearance: no apparent distress Respiratory/Chest: no respiratory distress Abdomen: normal bowel sounds, + distended Incision(s): intact, drainage (serosang- expected) Laboratory Results: Results Past 24 Hours Test 08/12/16 05:06 Range/Units White Blood Count 8.18 4.8-10.8 K/uL Red Blood Count 4.24 4.7-6.1 M/uL Hemoglobin 10.3 14.0-18.0 g/dL Hematocrit 31.9 42-52 % Mean Corpuscular Volume 75.2 80-100 fL Mean Corpuscular Hemoglobin 24.3 25-34 pg Mean Corpuscular Hemoglobin Concent 32.3 32-36 g/dl RDW Standard Deviation 42.7 36.4-46.3 fL RDW Coefficient of Variation 15.4 11.5-14.5 % Platelet Count 157 130-400 K/uL Mean Platelet Volume 10.3 7.4-10.4 fL Sodium Level 143 136-145 mmol/L Potassium Level 3.6 3.5-5.1 mmol/L Chloride Level 108 98-107 mmol/L Carbon Dioxide Level 31 21-32 mmol/L Anion Gap 4.0 3-11 mmol/L Blood Urea Nitrogen 13 7-18 mg/dl Creatinine 0.94 0.60-1.40 mg/dl Est Creatinine Clear Calc Drug Dose 67.3 ml/min Estimated GFR () 86.6 Estimated GFR (Non- 74.7 BUN/Creatinine Ratio 14.1 10-20 Random Glucose 126 70-99 mg/dl Calcium Level 7.7 8.5-10.1 mg/dl Phosphorus Level 3.1 2.5-4.9 mg/dl Magnesium Level 2.1 1.8-2.4 mg/dl Total Bilirubin 0.8 0.2-1 mg/dl Direct Bilirubin 0.2 0-0.2 mg/dl Aspartate Amino Transf (AST/SGOT) 110 15-37 U/L Alanine Aminotransferase (ALT/SGPT) 93 12-78 U/L Alkaline Phosphatase 33 45-117 U/L Total Protein 6.3 6.4-8.2 gm/dl Albumin 3.0 3.4-5.0 gm/dl Globulin 3.3 2.5-4.0 gm/dl Albumin/Globulin Ratio 0.9 0.9-2 Assessment & Plan 08/12/16- s/p lap christine- gangrenous cholecystitis, bilious ascites- no acute chgs overnight- d/c mcclelland, mobilize pt, leave drain to med/surg when ok with med team. Cont IV atbx 08/11/16- I think we should proceed with laparoscopic christine- he is at risk for developing necrotizing cholecystitis. Will plan for OR today 08/11/16- I think we should proceed with laparoscopic christine- he is at risk for developing necrotizing cholecystitis. Will plan for OR today
--- NOTE | 2016-08-12 07:43 | Anesthesiology Progress Note ---
Anesthesia Post Op Note Date & Time August 12, 2016 at 07:44 Vital Signs Pain Intensity: 6.0 Vital Signs Past 12 Hours Date Time Temp Pulse Resp B/P Pulse Ox O2 Delivery O2 Flow Rate FiO2 08/12/16 07:17 36.8 77 18 141/87 93 Room Air 08/12/16 04:00 Room Air 08/12/16 03:34 36.4 73 19 128/68 94 Room Air 08/11/16 23:59 Room Air 08/11/16 23:22 36.7 78 22 130/69 95 Room Air 08/11/16 20:00 93 Room Air 08/11/16 19:47 36.7 74 16 116/60 90 Room Air Notes Mental Status: alert / awake / arousable, participated in evaluation Pt Amnestic to Procedure: Yes Nausea / Vomiting: adequately controlled Pain: adequately controlled Airway Patency, RR, SpO2: stable & adequate BP & HR: stable & adequate Hydration State: stable & adequate Anesthetic Complications: no major complications apparent
[2016-08-12] MEDS: MAGNESIUM HYDROXIDE SUSP 30 ML UDC PO SCH ×2 (08:05→20:47)
[2016-08-12] MEDS: DOCUSATE SODIUM/SENNA 50/8.6MG TAB PO SCH ×2 (08:05→20:47)
[2016-08-12] MEDS: BUDESONIDE/FORMOTEROL FUMARATE 160/4.5 60 PUFFS/INHALER INH SCH ×2 (08:05→20:47)
[2016-08-12] MEDS: LOSARTAN POTASSIUM 25 MG TAB PO SCH (08:06)
[2016-08-12] MEDS: MULTIVITAMIN TAB PO SCH (08:06)
[2016-08-12] MEDS: FINASTERIDE 5 MG TAB PO SCH (08:06)
[2016-08-12] MEDS: PANTOprazole SOD 40 MG TAB PO SCH (08:06)
[2016-08-12] MEDS: TAMSULOSIN HCL 0.4 MG CAP PO SCH (08:06)
[2016-08-12] MEDS: PIPERACILL/TAZOBAC IV 3.375 GM in DEXTROSE 5% 100ML 100 ML IV SCH ×2 (08:11→16:24)
--- NOTE | 2016-08-12 10:25 | Progress Note ---
Internal Med Progress Note Date of Service: August 12, 2016. Provider Documentation: SUBJECTIVE: Patient is doing well post operatively. Denies any chest pain, SOB, abd pain, nausea, vomiting, fever, chills. OBJECTIVE: Vital Signs-as noted below Exam: General-AAOX3, no distress Eyes-No icterus Neck-Supple, No JVD Lungs-AEBE, no wheezing, crackles Heart-S1, S2 normal Abdomen-Soft, non tender, non distended Extremities-No edema Neuro-Grossly no focal deficits Lab data as noted below. ASSESSMENT & PLAN: ACUTE CHOLECYSTITIS (Gangrenous/Bilious ascites) S/P LAP CHOLECYSTECTOMY Patient was transferred from [place] ER for abdominal pain/exertional SOB, Imaging showed CHF. Was initially treated for CHF, received IV Lasix 80 mg X [address] scan abd/pelvis from [place] - multiple small gallstones, nodular prostate gland, renal cortical thickening, hepatic hemangioma, BL inguinal hernias, GB- Cholecystitis which explains his symptoms -S/P Laparoscopic cholecystectomy on 08/11/[address] Agrawal. Was cleared by cardiology- Not in CHF most likely symptoms on presentation were related to cholecystitis. -S/P IV Cefoxitin--> changed to IV Zosyn ( Day 2) ; IV Fluids at 75 cc./hour-- okay to discontinue as tolerating PO diet -Work up- Trop x 3- negative, BNP - normal, Echo- Small, underfilled LV chamber size with moderate concentric LVH, EF- > 70%, No new wall motion abnormalities; Trace AR, MR, Mild LAE, Gd II diastolic dysfunction -Appreciate surgery inputs B/L PLEURAL EFFUSIONS, SMALL: Initially rxed for possible CHF --> given IV Lasix x 1 dose - 80 mg in ER. -Per cardiology, cleared for lap cholecystectomy as likely symptoms were secondary to cholecystitis than cardiac etiology. Echo- diastolic dysfunction component, but no wall motion abn, EF normal -S/P IV Lasix 80 x 1 dose --> PRN lasix -Now on IVF - Ok to discontinue as tolerating PO -Appreciate cardiology inputs HEPATIC HEMANGIOMA, NODULAR PROSTATE - outpatient follow up HTN - continue Losartan, holding HCTZ - Monitor ASTHMA - no signs of acute exacerbation, continue home inhalers BPH - continue home meds DVT PROPHYLAXIS - SQ Lovenox held as post op DISPO - Ok to transfer to med-surg Vital Signs: Date Time Temp Pulse Resp B/P Pulse Ox O2 Delivery O2 Flow Rate FiO2 08/12/16 08:00 Room Air 08/12/16 07:17 36.8 77 18 141/87 93 Room Air 08/12/16 04:00 Room Air 08/12/16 03:34 36.4 73 19 128/68 94 Room Air 08/11/16 23:59 Room Air 08/11/16 23:22 36.7 78 22 130/69 95 Room Air 08/11/16 20:00 93 Room Air 08/11/16 19:47 36.7 74 16 116/60 90 Room Air 08/11/16 16:00 93 Room Air 08/11/16 15:05 36.6 81 20 129/61 96 Nasal Cannula 2 08/11/16 14:55 86 20 139/62 96 Nasal Cannula 2 08/11/16 14:46 88 22 99 Diffusion Mask 10.0 08/11/16 14:45 95 20 161/79 99 Mask 10 08/11/16 14:35 95 20 163/86 98 Mask 10 08/11/16 14:29 37.0 93 20 153/72 93 Room Air 08/11/16 12:03 93 Room Air 08/11/16 10:58 37.1 78 18 146/76 96 Room Air Lab Results: Results Past 24 Hours Test 08/12/16 05:06 Range/Units White Blood Count 8.18 4.8-10.8 K/uL Red Blood Count 4.24 4.7-6.1 M/uL Hemoglobin 10.3 14.0-18.0 g/dL Hematocrit 31.9 42-52 % Mean Corpuscular Volume 75.2 80-100 fL Mean Corpuscular Hemoglobin 24.3 25-34 pg Mean Corpuscular Hemoglobin Concent 32.3 32-36 g/dl RDW Standard Deviation 42.7 36.4-46.3 fL RDW Coefficient of Variation 15.4 11.5-14.5 % Platelet Count 157 130-400 K/uL Mean Platelet Volume 10.3 7.4-10.4 fL Sodium Level 143 136-145 mmol/L Potassium Level 3.6 3.5-5.1 mmol/L Chloride Level 108 98-107 mmol/L Carbon Dioxide Level 31 21-32 mmol/L Anion Gap 4.0 3-11 mmol/L Blood Urea Nitrogen 13 7-18 mg/dl Creatinine 0.94 0.60-1.40 mg/dl Est Creatinine Clear Calc Drug Dose 67.3 ml/min Estimated GFR () 86.6 Estimated GFR (Non- 74.7 BUN/Creatinine Ratio 14.1 10-20 Random Glucose 126 70-99 mg/dl Calcium Level 7.7 8.5-10.1 mg/dl Phosphorus Level 3.1 2.5-4.9 mg/dl Magnesium Level 2.1 1.8-2.4 mg/dl Total Bilirubin 0.8 0.2-1 mg/dl Direct Bilirubin 0.2 0-0.2 mg/dl Aspartate Amino Transf (AST/SGOT) 110 15-37 U/L Alanine Aminotransferase (ALT/SGPT) 93 12-78 U/L Alkaline Phosphatase 33 45-117 U/L Total Protein 6.3 6.4-8.2 gm/dl Albumin 3.0 3.4-5.0 gm/dl Globulin 3.3 2.5-4.0 gm/dl Albumin/Globulin Ratio 0.9 0.9-2
[2016-08-12] MEDS: D5W AND 1/2NSS + 40MEQ KCL 1,000 ML IV SCH (11:42)
[2016-08-12] MEDS: ACETAMINOPHEN 325 MG TAB PO PRN (13:42)
[2016-08-12] MEDS: POLYETHYLENE (MIRALAX) 17 GM PACK PO PRN (18:18)
[2016-08-13] MEDS: PIPERACILL/TAZOBAC IV 3.375 GM in DEXTROSE 5% 100ML 100 ML IV SCH ×2 (00:05→07:44)
--- NOTE | 2016-08-13 05:19 | Surgery Progress Note ---
Surgery Progress Note Date of Service August 13, 2016. Subjective + flatus, No bowel movement, No nausea, No vomiting no bm yet- some flatus Objective Vital Signs: Date Time Temp Pulse Resp B/P Pulse Ox O2 Delivery O2 Flow Rate FiO2 08/12/16 23:50 36.4 74 16 144/66 94 Room Air 08/12/16 23:30 Room Air 08/12/16 16:00 Room Air 08/12/16 15:27 37.0 70 18 145/78 96 Room Air 08/12/16 13:50 36.8 73 19 154/77 94 Room Air 08/12/16 11:24 36.9 81 18 150/71 93 Room Air 08/12/16 11:16 36.8 77 18 93 08/12/16 08:00 Room Air 08/12/16 07:17 36.8 77 18 141/87 93 Room Air General Appearance: no apparent distress Respiratory/Chest: no respiratory distress Abdomen: normal bowel sounds, non tender, + distended Incision(s): intact (serous , clear drainage), drainage Laboratory Results: Results Past 24 Hours Test 08/13/16 04:44 Range/Units Assessment & Plan 08/12/16- s/p lap christine- gangrenous cholecystitis, bilious ascites- no acute chgs overnight- d/c mcclelland, mobilize pt, leave drain to med/surg when ok with med team. Cont IV atbx 08/11/16- I think we should proceed with laparoscopic christine- he is at risk for developing necrotizing cholecystitis. Will plan for OR today 08/13/16- probably has mild ileus- will try dulcolax suppository, cont MOM and senokot s, needs to walk in hallway. Check Mg/Phos no N/V- says he feels much better. Cont atbx 08/12/16- s/p lap christine- gangrenous cholecystitis, bilious ascites- no acute chgs overnight- d/c mcclelland, mobilize pt, leave drain to med/surg when ok with med team. Cont IV atbx 08/11/16- I think we should proceed with laparoscopic christine- he is at risk for developing necrotizing cholecystitis. Will plan for OR today
[2016-08-13] MEDS ORDERED: BISACODYL 10 MG SUPP PR STA (05:25)
[2016-08-13 05:45] LABS: HEMATOCRIT 32.8 % (42-52); MEAN CELL VOLUME 75.1 fL (80-100); MEAN CORPUSCULAR HEMOGLOBIN 24.5 pg (25-34); MEAN CORPUSCULAR HGB CONC 32.6 g/dl (32-36); MEAN PLATELET VOLUME 10.5 fL (7.4-10.4); PLATELET COUNT 170 K/uL (130-400); RED BLOOD COUNT 4.37 M/uL (4.7-6.1); WHITE BLOOD COUNT 6.91 K/uL (4.8-10.8)
[2016-08-13 06:18] LABS: CREATININE 0.93 mg/dl (0.60-1.40)
[2016-08-13] MEDS: ACETAMINOPHEN 325 MG TAB PO PRN (08:00)
[2016-08-13 08:08] VITALS: BP 155/98; PULSE 80; TEMP 36.6; O2SAT 93
[2016-08-13] MEDS: MAGNESIUM HYDROXIDE SUSP 30 ML UDC PO SCH (09:00)
[2016-08-13] MEDS: BUDESONIDE/FORMOTEROL FUMARATE 160/4.5 60 PUFFS/INHALER INH SCH (09:02)
[2016-08-13] MEDS: TAMSULOSIN HCL 0.4 MG CAP PO SCH (09:03)
[2016-08-13] MEDS: LOSARTAN POTASSIUM 25 MG TAB PO SCH (09:03)
[2016-08-13] MEDS: PANTOprazole SOD 40 MG TAB PO SCH (09:04)
[2016-08-13] MEDS: FINASTERIDE 5 MG TAB PO SCH (09:04)
[2016-08-13] MEDS: MULTIVITAMIN TAB PO SCH (09:04)
[2016-08-13] MEDS: DOCUSATE SODIUM/SENNA 50/8.6MG TAB PO SCH (09:05)
--- NOTE | 2016-08-13 12:48 | Discharge Instructions ---
Discharge Instructions Date of Service August 13, 2016. Admission Reason for Admission: CHF Discharge Discharge Diagnosis / Problem: necrotizing cholecystitis Discharge Goals Goal(s): Decrease discomfort, Improve function, Improve disease control Activity Recommendations Activity Limitations: as noted below Lifting Limitations: no more than 10 pounds Exercise/Sports Limitations: until after follow-up appointment May Resume Sexual Activity: when tolerated Shower/Bathe: tomorrow Driving or Machine Use: one week SPECIAL CARE INSTRUCTIONS: * Cover incisions and change daily for comfort/drainage. * Empty drain 2-3 times per day and record. * May use ibuprofen for pain as tolerated. * Expect some swelling and bruising. Call your doctor if: * Temperature above 101 degrees * Pain not relieved by pain medicine ordered * There is increased drainage or redness from any incision * You have any unanswered questions or concerns [phone]. FOLLOW UP VISIT: If not already scheduled, please call the office for a follow-up visit. for next Wed or Wed- drain removal- please call office OFFICE PHONE NUMBER: Dr. Agrawal Office . Current Hospital Diet Patient's current hospital diet: AHA Diet (Heart Healthy), Low Sodium Diet (2gm Na) Discharge Diet Recommended Diet: Regular Diet Procedures Procedures Performed: same Pending Studies Studies pending at discharge: no Medical Emergencies . Who to Call and When: Medical Emergencies: If at any time you feel your situation is an emergency, please call 911 immediately. . Non-Emergent Contact Non-Emergency issues call your: Primary Care Provider, Surgeon . "Provider Documentation" section prepared by Clif Agrawal. . VTE Core Measure Inpt VTE Proph given/why not?: Enoxaparin (Lovenox)SQ, SCD's
--- NOTE | 2016-08-13 12:49 | Progress Note ---
Internal Med Progress Note Date of Service: August 13, 2016. Provider Documentation: SUBJECTIVE: Patient is doing well post operatively. Had 2 BMs today AM. Denies any chest pain, SOB, abd pain, nausea, vomiting, fever, chills. Tolerating ambulation/PO well Pain is well controlled. OBJECTIVE: Vital Signs-as noted below Exam: General-AAOX3, no distress Eyes-No icterus Neck-Supple, No JVD Lungs-AEBE, no wheezing, crackles Heart-S1, S2 normal Abdomen-S/P Laparoscopic cholecystectomy with drain in situ + Extremities-No edema Lab data as noted below. ASSESSMENT & PLAN: ACUTE CHOLECYSTITIS (Gangrenous) S/P LAP CHOLECYSTECTOMY Patient was transferred from [place] ER for abdominal pain/exertional SOB, Imaging showed CHF. Was initially treated for CHF, received IV Lasix 80 mg X [address] scan Abd/pelvis from [place] - multiple small gallstones, nodular prostate gland, renal cortical thickening, hepatic hemangioma, BL inguinal hernias, GB- Cholecystitis which explains his symptoms -S/P Laparoscopic cholecystectomy on 08/11/[address] Agrawal. Was cleared by cardiology- Not in CHF most likely symptoms on presentation were related to cholecystitis. -S/P IV Cefoxitin--> changed to IV Zosyn ( Day 2) ---> Change to Augmentin x 5 more days per d/w Surgery -S/P IV Fluids -Work up- Trop x 3- negative, BNP - normal, Echo- Small, underfilled LV chamber size with moderate concentric LVH, EF- > 70%, No new wall motion abnormalities; Trace AR, MR, Mild LAE, Gd II diastolic dysfunction -Appreciate surgery inputs. Cleared for discharge to home with drain and with f/ up with surgery. B/L PLEURAL EFFUSIONS, SMALL: Initially rxed for possible CHF --> given IV Lasix x 1 dose - 80 mg in ER. -Per cardiology, cleared for lap cholecystectomy as likely symptoms were secondary to cholecystitis than cardiac etiology. Echo- diastolic dysfunction component, but no wall motion abn, EF normal -S/P IV Lasix 80 x 1 dose --> PRN lasix. No indication to be on lasix. -S/P IVF -Appreciate cardiology inputs HEPATIC HEMANGIOMA, NODULAR PROSTATE - outpatient follow up HTN - continue Losartan, Ok to restart HCTZ on discharge - Monitor ASTHMA - no signs of acute exacerbation, continue home inhalers BPH - continue home meds DVT PROPHYLAXIS - SQ Lovenox held as post op DISPO Cleared by surgery for discharge. Follow up with surgery outpatient Vital Signs: Date Time Temp Pulse Resp B/P Pulse Ox O2 Delivery O2 Flow Rate FiO2 08/13/16 08:08 36.6 80 16 155/98 93 Room Air 08/13/16 07:40 Room Air 08/12/16 23:50 36.4 74 16 144/66 94 Room Air 08/12/16 23:30 Room Air 08/12/16 16:00 Room Air 08/12/16 15:27 37.0 70 18 145/78 96 Room Air 08/12/16 13:50 36.8 73 19 154/77 94 Room Air Lab Results: Results Past 24 Hours Test 08/13/16 05:23 Range/Units White Blood Count 6.91 4.8-10.8 K/uL Red Blood Count 4.37 4.7-6.1 M/uL Hemoglobin 10.7 14.0-18.0 g/dL Hematocrit 32.8 42-52 % Mean Corpuscular Volume 75.1 80-100 fL Mean Corpuscular Hemoglobin 24.5 25-34 pg Mean Corpuscular Hemoglobin Concent 32.6 32-36 g/dl RDW Standard Deviation 41.8 36.4-46.3 fL RDW Coefficient of Variation 15.0 11.5-14.5 % Platelet Count 170 130-400 K/uL Mean Platelet Volume 10.5 7.4-10.4 fL Creatinine 0.93 0.60-1.40 mg/dl Est Creatinine Clear Calc Drug Dose 68.4 ml/min Estimated GFR () 87.7 Estimated GFR (Non- 75.7
[2016-08-13] MEDS ORDERED: HYDR-5688 PO (12:51)
[2016-08-13] MEDS ORDERED: AMOX875T PO (12:51)
--- NOTE | 2016-08-13 12:53 | Discharge Instructions ---
Discharge Instructions Date of Service August 13, 2016. Admission Reason for Admission: CHF Discharge Discharge Diagnosis / Problem: 1. Acute cholecystits (gangrenous) status post laparoscopic cholecystectomy Discharge Goals Goal(s): Decrease discomfort, Improve function Activity Recommendations Activity Limitations: per Instructions/Follow-up section (as per surgeons instructions) Lifting Limitations: no more than 10 pounds . Instructions / Follow-Up Instructions / Follow-Up MEDICATION CHANGES: 1. New medication: Augmentin 875 mg PO BID x 5 days 2. New medication: Pain medication as per instructions only if needed. FOLLOW UP 1. Follow up with Dr Vizcarra on 08/20/16 at 9:15 AM 2. Follow up with Dr Agrawal as per his instructions Current Hospital Diet Patient's current hospital diet: AHA Diet (Heart Healthy), Low Sodium Diet (2gm Na) Discharge Diet Recommended Diet: AHA Diet (Heart Healthy), Low Sodium Diet (2gm Na), Low Fat Diet Procedures Procedures Performed: same Pending Studies Studies pending at discharge: no Medical Emergencies . Who to Call and When: Medical Emergencies: If at any time you feel your situation is an emergency, please call 911 immediately. . Non-Emergent Contact Non-Emergency issues call your: Primary Care Provider, Surgeon . . "Provider Documentation" section prepared by Nidia Bueno. . VTE Core Measure Inpt VTE Proph given/why not?: Enoxaparin (Lovenox)SQ, SCD's
--- NOTE | 2016-08-13 12:56 | Discharge Summary ---
Discharge Summary Date of Service August 13, 2016. Discharge Summary Admission Date: August 10, 2016 at 12:13 Discharge Date: August 13, 2016 Discharge Disposition: Home Principal Diagnosis: 1. Acute cholecystis (Gangrenous) 2. S/P Laparoscopic Cholecystectomy Secondary Diagnoses/Problems: 1. HTN 2. BPH 3. Asthma 4. Hepatic hemangioma 6. Prostatic nodule Procedures: Laparoscopic Cholecystectomy on 08/11/[address] Agrawal. Drain in situ--> Will be removed outpatient IV Fluids IV antibiotics US GB CXR Consultations: Surgery, Dr Agrawal Pending Studies/Follow-Up: Instructions / Follow-Up Instructions / Follow-Up MEDICATION CHANGES: 1. New medication: Augmentin 875 mg PO BID x 5 days 2. New medication: Pain medication as per instructions only if needed. FOLLOW UP 1. Follow up with Dr Vizcarra on 08/20/16 at 9:15 AM 2. Follow up with Dr Agrawal as per his instructions Medication Reconciliation New Medications: Amoxicillin & Pot Clavulanate (Augmentin 875-125 mg) 1 Tab Tab 1 TAB PO BID for 5 Days, #10 TAB Hydrocodone/Acetaminophen 5MG/325MG ([place] 5MG/325MG) Tab 1 TABLET PO Q6H PRN for Pain, #20 TAB Continued Medications: Aspirin (Aspirin EC Low Dose) 81 Mg Ectab 81 MG PO DAILY Budesonide/Formoterol Fumarate (Symbicort 160/4.5 Inhaler) 120 Puffs/ Aero 2 PUFFS INH BID, #10.6 GM 3 Refills Cyclobenzaprine Hcl (Flexeril) 10 Mg Tab 1 TAB PO BID PRN for Muscle Spasms for 30 Days, #60 TAB Finasteride (Proscar) 5 Mg Tab 1 TAB PO DAILY for 30 Days, #30 TAB 11 Refills Hydrochlorothiazide (Hctz) 12.5 Mg Cap 1 CAP PO DAILY for 30 Days, #30 CAP 5 Refills Losartan Potassium (Cozaar) 25 Mg Tab 1 TAB PO DAILY for 30 Days, #30 TAB 5 Refills Multivitamin (Multivitamin) Tab 1 TAB PO DAILY, TAB Omeprazole (Prilosec) 40 Mg Cap 40 MG PO DAILY, CAP Polyethylene Glycol 3350 (Miralax) 1 Pow Pow 17 GM PO DAILY PRN for Constipation, #527 GM Tamsulosin Hcl (Flomax) 0.4 Mg Cap 0.4 MG PO DAILY, CAP Admission Information HPI (per Admitting provider): 81 year old male who presented to [place] [facility] with abdominal pain. Patient reports the pain began around midnight last night. He reports it was located in the lower middle abdomen and radiated out to the sides. He says it was constant and severe. He describes it as a cramping. He reports mild associated nausea with a couple episodes of a small vomiting. He denies diarrhea, fever, and chills. He notes yesterday while cleaning up some garbage he has exertional shortness of breath which is something new for him. He denies chest pain. He reports with rest his shortness of breath improved. He has some swelling to the BLLE today. He notes his legs swell at times and this is no worse than normal. Patient is currently without complaint. Reports the abdominal pain has completely resolved. He denies lightheadedness, dizziness, diaphoresis, or syncope. No urinary symptoms. At [place] ED, patient had a CT abd/pelvis that showed multiple small gallstones, nodular prostate gland, BL pleural effusions, hepatic hemangiomas, and BL inguinal hernias. CXR showed mild CHF. Patient was given Lasix 80mg IV. At the time of my exam, patient is sitting up in the chair, no acute distress. Physical Exam (per Admitting): General Appearance: no apparent distress Head: normocephalic Eyes: normal inspection ENT: hearing grossly normal Neck: supple, no JVD Respiratory/Chest: lungs clear, normal breath sounds, no respiratory distress Cardiovascular: regular rate, rhythm, normal peripheral pulses, + pertinent finding (trace edema BLLE) Abdomen/GI: normal bowel sounds, non tender, soft Extremities/Musculoskelatal: normal inspection, no calf tenderness Neurologic/Psych: no motor/sensory deficits, alert, normal mood/affect, oriented x 3 Skin: normal color, warm/dry Hospital Course ACUTE CHOLECYSTITIS (Gangrenous) S/P LAP CHOLECYSTECTOMY Patient was transferred from [place] ER for abdominal pain/exertional SOB, Imaging showed CHF. Was initially treated for CHF, received IV Lasix 80 mg X [address] scan Abd/pelvis from [place] - multiple small gallstones, nodular prostate gland, renal cortical thickening, hepatic hemangioma, BL inguinal hernias, GB- Cholecystitis which explains his symptoms -S/P Laparoscopic cholecystectomy on 08/11/[address] Agrawal. Was cleared by cardiology- Not in CHF most likely symptoms on presentation were related to cholecystitis. -S/P IV Cefoxitin--> changed to IV Zosyn ( Day 2) ---> Change to Augmentin x 5 more days per d/w Surgery -S/P IV Fluids -Work up- Trop x 3- negative, BNP - normal, Echo- Small, underfilled LV chamber size with moderate concentric LVH, EF- > 70%, No new wall motion abnormalities; Trace AR, MR, Mild LAE, Gd II diastolic dysfunction -Appreciate surgery inputs. Cleared for discharge to home with drain and with f/ up with surgery. B/L PLEURAL EFFUSIONS, SMALL: Initially rxed for possible CHF --> given IV Lasix x 1 dose - 80 mg in ER. -Per cardiology, cleared for lap cholecystectomy as likely symptoms were secondary to cholecystitis than cardiac etiology. Echo- diastolic dysfunction component, but no wall motion abn, EF normal -S/P IV Lasix 80 x 1 dose --> PRN lasix. No indication to be on lasix. -S/P IVF -Appreciate cardiology inputs HEPATIC HEMANGIOMA, NODULAR PROSTATE - outpatient follow up HTN - continue Losartan, Ok to restart HCTZ on discharge - Monitor ASTHMA - no signs of acute exacerbation, continue home inhalers BPH - continue home meds DVT PROPHYLAXIS - SQ Lovenox held as post op DISPO Cleared by surgery for discharge. Follow up with surgery outpatient Total time spent on discharge = 38 minutes This includes examination of the patient, discharge planning, medication reconciliation, and communication with other providers. Discharge Instructions Discharge Goals Goal(s): Decrease discomfort, Improve function Activity Recommendations Activity Limitations: per Instructions/Follow-up section (as per surgeons instructions) Lifting Limitations: no more than 10 pounds . Instructions / Follow-Up Instructions / Follow-Up MEDICATION CHANGES: 1. New medication: Augmentin 875 mg PO BID x 5 days 2. New medication: Pain medication as per instructions only if needed. FOLLOW UP 1. Follow up with Dr Vizcarra on 08/20/16 at 9:15 AM 2. Follow up with Dr Agrawal as per his instructions Current Hospital Diet Patient's current hospital diet: AHA Diet (Heart Healthy), Low Sodium Diet (2gm Na) Discharge Diet Recommended Diet: AHA Diet (Heart Healthy), Low Sodium Diet (2gm Na), Low Fat Diet Procedures Procedures Performed: same Pending Studies Studies pending at discharge: no Medical Emergencies . Who to Call and When: Medical Emergencies: If at any time you feel your situation is an emergency, please call 911 immediately. . Non-Emergent Contact Non-Emergency issues call your: Primary Care Provider, Surgeon . . "Provider Documentation" section prepared by Nidia Bueno. . VTE Core Measure Inpt VTE Proph given/why not?: Enoxaparin (Lovenox)SQ, SCD's
[2016-08-13 13:13] VITALS: BP 155/98; PULSE 80; TEMP 36.6; O2SAT 93
== END 2016-08-13 14:20 | disposition home health service (06) | DRG 418 ==
LOC: ENRESERVDT → CANRESERV → ENRESERVTM → C.MED 12:13 → C.2T 12:25 → EDBEDREQSVC 08-12 11:18 → EDBEDREQ 08-12 11:18 → C.MSW 08-12 13:28
PROVIDERS: ADMIT Internal Medicine; ATTEND Internal Medicine
PROC: 0FT44ZZ Resection of Gallbladder, Percutaneous Endoscopic Approach (ICD-10-PCS; principal; 2016-08-11 13:00)
DX: K80.00 Calculus of gallbladder with acute cholecystitis without obstruction (principal); R18.8 Other ascites; J90 Pleural effusion, not elsewhere classified; K40.20 Bilateral inguinal hernia, without obstruction or gangrene, not specified as recurrent; N40.0 Benign prostatic hyperplasia without lower urinary tract symptoms; D18.03 Hemangioma of intra-abdominal structures; I08.0 Rheumatic disorders of both mitral and aortic valves; K83.8 Other specified diseases of biliary tract; J45.30 Mild persistent asthma, uncomplicated; I10 Essential (primary) hypertension; M19.90 Unspecified osteoarthritis, unspecified site; Z79.82 Long term (current) use of aspirin; Z79.899 Other long term (current) drug therapy; Z96.659 Presence of unspecified artificial knee joint; K21.9 Gastro-esophageal reflux disease without esophagitis